=== PATIENT | female | born 1945 | race Caucasian/White ===

== ENCOUNTER 2018-05-07 15:02 | Emergency (ER) | payer MEDICARE ==
[~2018-05-07] VITALS: Ht 170.2 cm; Wt 91.0 kg
[~2018-05-07 15:02] MED LIST: ADVAIR HF1 INH; ADVAIR HFA IN; AMITRIPTYLIN25 MG OR; CEPHALEXIN500 MG PO; DOXYCYCL HYC100 MG OR; FUROSEMIDE20 MG PO; HYDROCODONE/ACE1 TAB PO; LEXAPRO20 MG OR; LORTAB 5 OR; NORCO1 TAB OR; NORCO1 TAB PO; OMEPRAZOLE20 MG PO; PERCOCET 10/31 COMBO PO; POT CHLORIDE20 ME3 PO; POTASSI20 PO; PREDNISONE20 MG OR; PRILOSEC20 MG/CAP PO; PRILOSEC40 MG PO; PROAIR HFA IN; SIMVASTATIN20 MG PO; SINGULAIR10 MG PO; TAM75CAP PO; TOPROL XL PO; TOPROL XL50 MG PO; [UNRECOGNIZED DRUG - OTHER] IV
[2018-05-07] MEDS ORDERED: SINGULAIR10 MG PO (15:42)
[2018-05-07 17:19] LABS: HEMATOCRIT 37.8 % (37.0-47.0); HEMOGLOBIN 12.5 g/dl (12.0-16.0); IMMATURE GRANULOCYTES 0.1 % (0.0-1.0); MEAN CELL VOLUME 98.4 fL CALC (80.0-100.0); MEAN CORPUSCULAR HGB 32.6 pG CALC (26.0-32.0); MEAN CORPUSCULAR HGB CONC 33.1 g/L CALC (32.0-36.0); NEUT# 3.69 thou/uL (2.00-7.15); RED BLOOD COUNT 3.84 mill/uL (4.20-5.60); RED CELL DISTRI WIDTH 11.5 % (11.5-15.5); URINE BILIRUBIN - DIPSTICK NEGATIVE (NEGATIVE); URINE BLOOD DIPSTICK NEGATIVE (NEGATIVE); URINE COLOR YELLOW; URINE GLUCOSE - DIPSTICK NEGATIVE (NEGATIVE); URINE KETONE NEGATIVE (NEGATIVE); URINE LEUK ESTERASE NEGATIVE (NEGATIVE); URINE NITRITE - DIPSTICK NEGATIVE (Negative); URINE PH 5.5 (4.5-8.0); URINE PROTEIN - DIPSTICK NEGATIVE (NEG-TRACE); URINE UROBILINOGEN - DIPSTICK 0.2 E.U./dL (0.2)
[2018-05-07 17:20] LABS: URINE CLARITY CLEAR
[2018-05-07 17:53] LABS: ALKALINE PHOSPHATASE 58 u/l (38-126); ANION GAP 9 (6-22 (CALC)); BILIRUBIN, TOTAL 0.8 mg/dL (0.0-1.4); BUN 23 mg/dL (8-23); BUN/CREATININE RATIO 29 (12-20 (CALC)); CARBON DIOXIDE 29 mmol/l (22-30); CHLORIDE 107 mmol/l (95-108); CREATININE 0.8 mg/dL (0.5-1.0); GFR > 60 ML/MIN (>=60 (CALC)); GFR FOR AFR.AMER. > 60 ML/MIN (>=60 (CALC)); LIPASE 47 u/l (23-300); POTASSIUM 4.3 mmol/l (3.5-5.1); SGOT/AST 21 u/l (9-36); SGPT/ALT 30 u/l (11-66); SODIUM 140 mmol/l (137-146); TOTAL PROTEIN 6.5 g/dL (6.3-8.2)
[2018-05-07 19:57] VITALS: BP 138/70
== END 2018-05-07 19:54 | disposition home or self-care (01) ==
LOC: ED 15:02
PROVIDERS: Family Medicine
DX: R10.31 Right lower quadrant pain (principal); R10.32 Left lower quadrant pain; E11.9 Type 2 diabetes mellitus without complications; J45.909 Unspecified asthma, uncomplicated
CPT/HCPCS: Q9967

== ENCOUNTER → 2018-12-20 | Outpatient (REF) | payer MEDICARE ==
[~2018-12-20] MED LIST changes: +CYMBALTA60 MG PO; +FISH OIL1 CAP PO; +L-LYSINE500 M2 PO; +METO50TA52 PO
== END | disposition home or self-care (01) ==
LOC: CT 13:51
PROVIDERS: ATTEND Nurse Practitioner
DX: R91.1 Solitary pulmonary nodule (principal)

== ENCOUNTER → 2019-01-05 | Outpatient (REF) | payer MEDICARE | END | disposition home or self-care (01) | LOC: DI 10:34 | PROVIDERS: ATTEND Nurse Practitioner | DX: R05 Cough (principal) ==

== ENCOUNTER → 2019-01-26 | Outpatient (REF) | payer MEDICARE ==
[2019-01-26 11:39] LABS: ANION GAP 12 (6-22 (CALC)); BUN 14 mg/dL (8-23); BUN/CREATININE RATIO 14 (12-20 (CALC)); CARBON DIOXIDE 31 mmol/l (22-30); CHLORIDE 103 mmol/l (95-108); GFR 55 ML/MIN (>=60 (CALC)); GFR FOR AFR.AMER. > 60 ML/MIN (>=60 (CALC)); POTASSIUM 3.8 mmol/l (3.5-5.1); SODIUM 143 mmol/l (137-146)
== END | disposition home or self-care (01) ==
LOC: LAB 10:16
PROVIDERS: ATTEND Internal Medicine Endocrinology, Diabetes & Metabolism
DX: E11.69 Type 2 diabetes mellitus with other specified complication (principal)

== ENCOUNTER 2019-07-26 06:28 | Day surgery (SDC) | payer MEDICARE ==
[~2019-07-26] VITALS: Ht 167.6 cm; Wt 83.9 kg
[2019-07-26] MEDS ORDERED: PROBIOTIC1 TAB PO (06:57)
[2019-07-26] MEDS ORDERED: MULTI VIT PO (06:57)
[2019-07-26] MEDS ORDERED: CALCIU1 PO (06:58)
[2019-07-26] MEDS ORDERED: L-LYSINE1000 M1 PO (06:58)
[2019-07-26 08:29] VITALS: BP 135/63
== END 2019-07-26 08:41 | disposition home or self-care (01) ==
LOC: ENDO 06:28 → ORM 08:00 → ENDO 08:00 → ORM 08:45
PROVIDERS: ATTEND Surgery
PROC: 0DBL8ZX Excision of Transverse Colon, Via Natural or Artificial Opening Endoscopic, Diagnostic (ICD-10-PCS; principal; 2019-07-26)
DX: D12.3 Benign neoplasm of transverse colon (principal); K57.30 Diverticulosis of large intestine without perforation or abscess without bleeding; K64.8 Other hemorrhoids; I10 Essential (primary) hypertension; Z86.010 Personal history of colon polyps

== ENCOUNTER 2019-09-09 13:23 | Emergency (ER) | payer MEDICARE ==
[~2019-09-09] VITALS: Ht 167.6 cm; Wt 81.0 kg
[~2019-09-09 13:23] MED LIST changes: +CALCIU1 PO; +L-LYSINE1000 M1 PO; +MULTI VIT PO; +PROBIOTIC1 TAB PO
[2019-09-09 14:16] LABS: HEMATOCRIT 39.1 % (37.0-47.0); HEMOGLOBIN 12.8 g/dl (12.0-16.0); IMMATURE GRANULOCYTES 0.3 % (0.0-5.0); MEAN CELL VOLUME 95.8 fL CALC (80.0-100.0); MEAN CORPUSCULAR HGB 31.4 pG CALC (26.0-32.0); MEAN CORPUSCULAR HGB CONC 32.7 g/L CALC (32.0-36.0); NEUT# 5.96 thou/uL (2.00-7.15); RED BLOOD COUNT 4.08 mill/uL (4.20-5.60)
[2019-09-09 14:17] LABS: URINE BILIRUBIN - DIPSTICK NEGATIVE (NEGATIVE); URINE BLOOD DIPSTICK NEGATIVE (NEGATIVE); URINE COLOR YELLOW; URINE GLUCOSE - DIPSTICK NEGATIVE (NEGATIVE); URINE KETONE NEGATIVE (NEGATIVE); URINE LEUK ESTERASE NEGATIVE (NEGATIVE); URINE PROTEIN - DIPSTICK NEGATIVE (NEG-TRACE); URINE SPECIFIC GRAVITY >=1.030; URINE UROBILINOGEN - DIPSTICK 0.2 E.U./dL (0.2)
[2019-09-09 14:26] LABS: URINE NITRITE - DIPSTICK POSITIVE (Negative)
[2019-09-09 14:27] LABS: ALBUMIN 4.3 g/dL (3.2-5.0); BILIRUBIN, TOTAL 0.9 mg/dL (0.0-1.4); CREATININE 1.1 mg/dL (0.5-1.0); POTASSIUM 4.1 mmol/l (3.5-5.1)
[2019-09-09 14:27] LABS: URINE BACTERIA MANY hpf; URINE CALCIUM OXALATE CRYSTALS FEW lpf; URINE SQUAMOUS EPITHELIAL CELL FEW EPI/hpf (0-FEW)
[2019-09-09] MEDS ORDERED: MACRODANTIN100 MG PO (15:12)
[2019-09-09 15:18] VITALS: BP 124/81
== END 2019-09-09 15:28 | disposition home or self-care (01) ==
LOC: ED 13:23
PROVIDERS: Emergency Medicine
DX: N39.0 Urinary tract infection, site not specified (principal); R39.198 Other difficulties with micturition; I10 Essential (primary) hypertension; B96.20 Unspecified Escherichia coli [E. coli] as the cause of diseases classified elsewhere

== ENCOUNTER 2020-01-23 | Emergency (ER) | payer OTHER, MEDICARE ==
[~2020-01-23] MED LIST changes: +CARAFATE1 GM PO; +MACRODANTIN100 MG PO; +MONTELUKAST SOD10 MG PO
[2020-01-23 19:26] LABS: HEMATOCRIT 37.9 % (37.0-47.0); HEMOGLOBIN 12.6 g/dl (12.0-16.0); IMMATURE GRANULOCYTES 0.4 % (0.0-5.0); MEAN CELL VOLUME 94.3 fL CALC (80.0-100.0); MEAN CORPUSCULAR HGB 31.3 pG CALC (26.0-32.0); MEAN CORPUSCULAR HGB CONC 33.2 g/dL CAL (32.0-36.0); NEUT# 4.33 thou/uL (2.00-7.15); RED BLOOD COUNT 4.02 mill/uL (4.20-5.60); RED CELL DISTRI WIDTH 11.9 % (11.5-15.5)
[2020-01-23 19:34] LABS: URINE BILIRUBIN - DIPSTICK NEGATIVE (NEGATIVE); URINE BLOOD DIPSTICK NEGATIVE (NEGATIVE); URINE COLOR YELLOW; URINE GLUCOSE - DIPSTICK NEGATIVE (NEGATIVE); URINE KETONE NEGATIVE (NEGATIVE); URINE LEUK ESTERASE NEGATIVE (NEGATIVE); URINE NITRITE - DIPSTICK NEGATIVE (Negative); URINE PROTEIN - DIPSTICK NEGATIVE (NEG-TRACE); URINE SPECIFIC GRAVITY >=1.030; URINE UROBILINOGEN - DIPSTICK 0.2 E.U./dL (0.2)
[2020-01-23 19:44] LABS: ALBUMIN 4.3 g/dL (3.2-5.0); ALKALINE PHOSPHATASE 74 u/l (38-126); AMYLASE 50 u/l (30-110); ANION GAP 10 (6-22 (CALC)); BILIRUBIN, TOTAL 0.8 mg/dL (0.0-1.4); BUN 27 mg/dL (8-23); BUN/CREATININE RATIO 29 (12-20 (CALC)); CARBON DIOXIDE 31 mmol/l (22-30); CHLORIDE 102 mmol/l (95-108); CREATININE 0.9 mg/dL (0.5-1.0); GFR > 60 ML/MIN (>=60 (CALC)); GFR FOR AFR.AMER. > 60 ML/MIN (>=60 (CALC)); LIPASE 52 u/l (23-300); SGOT/AST 24 u/l (9-36); SODIUM 139 mmol/l (137-146); TOTAL PROTEIN 6.9 g/dL (6.3-8.2)
[2020-01-23 19:45] LABS: ACT PARTIAL THROMBO TIME 27.4 SECONDS (20.0-32.5); PROTHROMBIN TIME 10.4 SECONDS (9.0-12.5)
[2020-01-23] MEDS ORDERED: MULTI VIT PO (20:17)
[2020-01-23] MEDS ORDERED: DITROPAN5 MG/TA1 PO (20:17)
[2020-01-23] MEDS ORDERED: L-LYSINE1000 M1 PO (20:18)
[2020-01-23] MEDS ORDERED: OMEGA 31000 MG PO (20:19)
[2020-01-23] MEDS ORDERED: CALCIU1 PO (20:19)
[2020-01-23] MEDS ORDERED: PROBIOTIC1 TAB PO (20:20)
[2020-01-23] MEDS ORDERED: HYDROCO/APAP1 TA9 PO (21:09)
[2020-03-25] MEDS ORDERED: METOPROLOL SUCC50 MG PO (11:21)
== END 2020-01-23 21:24 | disposition home or self-care (01) | DRG 552 ==
DX: S16.1XXA Strain of muscle, fascia and tendon at neck level, initial encounter (principal); S20.219A Contusion of unspecified front wall of thorax, initial encounter; S80.02XA Contusion of left knee, initial encounter; I10 Essential (primary) hypertension; J44.9 Chronic obstructive pulmonary disease, unspecified; I34.1 Nonrheumatic mitral (valve) prolapse; V49.40XA Driver injured in collision with unspecified motor vehicles in traffic accident, initial encounter
CPT/HCPCS: Q9967

== ENCOUNTER 2020-04-01 07:42 | Day surgery (SDC) | payer MEDICARE ==
[~2020-04-01 07:42] MED LIST changes: +DITROPAN5 MG/TA1 PO; +HYDROCO/APAP1 TA9 PO; +METOPROLOL SUCC50 MG PO; +OMEGA 31000 MG PO
[2020-04-01 10:47] VITALS: BP 162/67
== END 2020-04-01 11:00 | disposition home or self-care (01) ==
LOC: ENDO 07:42 → ORM 08:00 → ENDO 11:00
PROVIDERS: ATTEND Surgery
PROC: 0DB48ZX Excision of Esophagogastric Junction, Via Natural or Artificial Opening Endoscopic, Diagnostic (ICD-10-PCS; principal; 2020-04-01)
PROC: 0DB78ZX Excision of Stomach, Pylorus, Via Natural or Artificial Opening Endoscopic, Diagnostic (ICD-10-PCS; 2020-04-01)
PROC: 0DB68ZX Excision of Stomach, Via Natural or Artificial Opening Endoscopic, Diagnostic (ICD-10-PCS; 2020-04-01)
DX: T54.91XA Toxic effect of unspecified corrosive substance, accidental (unintentional), initial encounter (principal); R13.10 Dysphagia, unspecified; K29.50 Unspecified chronic gastritis without bleeding; K29.70 Gastritis, unspecified, without bleeding; K31.7 Polyp of stomach and duodenum; K44.9 Diaphragmatic hernia without obstruction or gangrene; I10 Essential (primary) hypertension; Z11.59 Encounter for screening for other viral diseases

== ENCOUNTER 2020-10-22 10:46 | Emergency (ER) | payer MEDICARE ==
[~2020-10-22] VITALS: Ht 167.6 cm; Wt 84.0 kg
[2020-10-22 12:15] VITALS: BP 141/72
== END 2020-10-22 12:15 | disposition home or self-care (01) ==
LOC: ED 10:46
DX: S83.91XA Sprain of unspecified site of right knee, initial encounter (principal); S80.211A Abrasion, right knee, initial encounter; S46.911A Strain of unspecified muscle, fascia and tendon at shoulder and upper arm level, right arm, initial encounter; I10 Essential (primary) hypertension; J44.9 Chronic obstructive pulmonary disease, unspecified; I34.1 Nonrheumatic mitral (valve) prolapse; W01.0XXA Fall on same level from slipping, tripping and stumbling without subsequent striking against object, initial encounter; Y92.009 Unspecified place in unspecified non-institutional (private) residence as the place of occurrence of the external cause

== ENCOUNTER 2021-10-12 11:41 | Emergency (ER) | payer MEDICARE ==
[~2021-10-12] VITALS: Ht 167.6 cm; Wt 84.1 kg
[2021-10-12] MEDS ORDERED: OXYBUTYNIN CHLOR5 M1 PO (13:21)
[2021-10-12 13:49] VITALS: BP 144/67
== END 2021-10-12 13:49 | disposition home or self-care (01) ==
LOC: ED 11:41
DX: M16.11 Unilateral primary osteoarthritis, right hip (principal); M47.816 Spondylosis without myelopathy or radiculopathy, lumbar region; I10 Essential (primary) hypertension; J44.9 Chronic obstructive pulmonary disease, unspecified; I34.1 Nonrheumatic mitral (valve) prolapse

== ENCOUNTER 2022-01-01 18:43 | Emergency (ER) | payer MEDICARE ==
[~2022-01-01] VITALS: Ht 167.6 cm; Wt 82.0 kg
[~2022-01-01 18:43] MED LIST changes: +OXYBUTYNIN CHLOR5 M1 PO
[2022-01-01 20:05] LABS: HEMATOCRIT 41.8 % (37.0-47.0); HEMOGLOBIN 13.7 g/dl (12.0-16.0); IMMATURE GRANULOCYTES 0.3 % (0.0-5.0); MEAN CELL VOLUME 97.4 fL CALC (80.0-100.0); MEAN CORPUSCULAR HGB 31.9 pG CALC (26.0-32.0); MEAN CORPUSCULAR HGB CONC 32.8 g/dL CAL (32.0-36.0); NEUT# 5.66 thou/uL (2.00-7.15); RED BLOOD COUNT 4.29 mill/uL (4.20-5.60); RED CELL DISTRI WIDTH 11.8 % (11.5-15.5)
[2022-01-01 20:22] LABS: ALBUMIN 4.4 g/dL (3.2-5.0); ALKALINE PHOSPHATASE 85 u/l (38-126); BILIRUBIN, TOTAL 0.6 mg/dL (0.0-1.4); BUN 29 mg/dL (8-23); BUN/CREATININE RATIO 35 (12-20 (CALC)); CHLORIDE 104 mmol/l (95-108); CREATININE 0.8 mg/dL (0.5-1.0); GFR > 60 ML/MIN (>=60 (CALC)); GFR FOR AFR.AMER. > 60 ML/MIN (>=60 (CALC)); MAGNESIUM 2.4 mg/dL (1.6-2.3); POTASSIUM 4.3 mmol/l (3.5-5.1); SGOT/AST 35 u/l (9-36); SODIUM 139 mmol/l (137-146); TOTAL PROTEIN 7.3 g/dL (6.3-8.2)
[2022-01-01 20:23] LABS: ANION GAP 13 (6-22 (CALC)); CARBON DIOXIDE 26 mmol/l (22-30)
[2022-01-01 20:28] LABS: MYOGLOBIN 23 ng/mL (0 - 62)
[2022-01-01 20:32] LABS: D-DIMER 0.45 mg/L (0.19-0.60)
[2022-01-01 20:35] LABS: ACT PARTIAL THROMBO TIME 26.9 SECONDS (20.0-32.5)
[2022-01-01 20:50] LABS: TSH, 3RD GENERATION 0.43 uIU/mL (0.47 - 4.68)
[2022-01-01 20:55] LABS: URINE BILIRUBIN - DIPSTICK NEGATIVE (NEGATIVE); URINE BLOOD DIPSTICK SMALL (NEGATIVE); URINE COLOR YELLOW; URINE GLUCOSE - DIPSTICK 500 mg/dL (NEGATIVE); URINE KETONE NEGATIVE (NEGATIVE); URINE LEUK ESTERASE NEGATIVE (NEGATIVE); URINE PROTEIN - DIPSTICK NEGATIVE (NEG-TRACE); URINE UROBILINOGEN - DIPSTICK 0.2 E.U./dL (0.2)
[2022-01-01 20:56] LABS: URINE NITRITE - DIPSTICK NEGATIVE (Negative)
[2022-01-01] MEDS ORDERED: METFORMIN HCL1000 M1 PO (21:21)
[2022-01-01 22:10] VITALS: BP 170/72
== END 2022-01-01 22:10 | disposition home or self-care (01) ==
LOC: ED 18:43
PROVIDERS: Family Medicine
DX: E11.65 Type 2 diabetes mellitus with hyperglycemia (principal); R06.02 Shortness of breath; I10 Essential (primary) hypertension; J44.9 Chronic obstructive pulmonary disease, unspecified; I34.1 Nonrheumatic mitral (valve) prolapse

== ENCOUNTER 2022-04-29 11:30 | Emergency (ER) | payer MEDICARE ==
[~2022-04-29] VITALS: Ht 167.6 cm; Wt 90.0 kg
[2022-04-29] VITALS (11 sets, daily range): BP systolic 102–116; BP diastolic 50–76
[~2022-04-29 11:30] MED LIST changes: +METFORMIN HCL1000 M1 PO
[2022-04-29] MEDS ORDERED: NAPROXEN500 MG PO (13:56)
== END 2022-04-29 14:27 | disposition home or self-care (01) ==
LOC: ED 11:30
DX: S83.92XA Sprain of unspecified site of left knee, initial encounter (principal); S16.1XXA Strain of muscle, fascia and tendon at neck level, initial encounter; S90.32XA Contusion of left foot, initial encounter; S80.811A Abrasion, right lower leg, initial encounter; M17.12 Unilateral primary osteoarthritis, left knee; I10 Essential (primary) hypertension; J44.9 Chronic obstructive pulmonary disease, unspecified; W17.89XA Other fall from one level to another, initial encounter; Y93.A1 Activity, exercise machines primarily for cardiorespiratory conditioning; Y92.009 Unspecified place in unspecified non-institutional (private) residence as the place of occurrence of the external cause

== ENCOUNTER 2022-10-04 09:26 | Day surgery (SDC) | payer MEDICARE ==
[~2022-10-04] VITALS: Ht 167.6 cm; Wt 66.7 kg
[~2022-10-04 09:26] MED LIST changes: +NAPROXEN500 MG PO
[2022-10-04] MEDS ORDERED: VENTOLIN HFA IN (10:18)
[2022-10-04 14:56] VITALS: BP 135/71
== END 2022-10-04 13:40 | disposition home or self-care (01) ==
LOC: ENDO 09:26
PROVIDERS: ATTEND Internal Medicine Gastroenterology
PROC: 0DBK8ZX Excision of Ascending Colon, Via Natural or Artificial Opening Endoscopic, Diagnostic (ICD-10-PCS; principal; 2022-10-04)
PROC: 0DBN8ZX Excision of Sigmoid Colon, Via Natural or Artificial Opening Endoscopic, Diagnostic (ICD-10-PCS; 2022-10-04)
PROC: 0DBH8ZX Excision of Cecum, Via Natural or Artificial Opening Endoscopic, Diagnostic (ICD-10-PCS; 2022-10-04)
DX: Z12.11 Encounter for screening for malignant neoplasm of colon (principal); D12.0 Benign neoplasm of cecum; K63.5 Polyp of colon; K64.8 Other hemorrhoids; I10 Essential (primary) hypertension; E11.9 Type 2 diabetes mellitus without complications; J44.9 Chronic obstructive pulmonary disease, unspecified; E78.5 Hyperlipidemia, unspecified; K21.9 Gastro-esophageal reflux disease without esophagitis; Z80.0 Family history of malignant neoplasm of digestive organs

== ENCOUNTER 2022-11-25 20:19 | Emergency (ER) | payer MEDICARE ==
[~2022-11-25] VITALS: Ht 167.6 cm; Wt 75.0 kg
[~2022-11-25 20:19] MED LIST changes: +VENTOLIN HFA IN
[2022-11-26] VITALS (11 sets, daily range): BP systolic 106–137; BP diastolic 46–102
== END 2022-11-26 03:12 | disposition home or self-care (01) ==
LOC: ED 20:19
DX: S46.911A Strain of unspecified muscle, fascia and tendon at shoulder and upper arm level, right arm, initial encounter (principal); M25.551 Pain in right hip; I10 Essential (primary) hypertension; J44.9 Chronic obstructive pulmonary disease, unspecified; I05.8 Other rheumatic mitral valve diseases; W01.0XXA Fall on same level from slipping, tripping and stumbling without subsequent striking against object, initial encounter

== ENCOUNTER 2024-07-25 17:53 | Observation (INO) | payer MEDICARE ==
[2024-07-25] VITALS (8 sets, daily range): BP systolic 115–182; BP diastolic 46–102
[~2024-07-25] VITALS: Ht 167.6 cm; Wt 80.0 kg
[~2024-07-25 17:53] MED LIST changes: -HYDROCODONE/ACE1 TAB PO; +LORTAB 1010 MG PO
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
[2024-07-25 18:27] LABS: BASO% 0.6 % (0-3); EOS% 2.1 % (0-8); HEMATOCRIT 41.5 % (37.0-47.0); HEMOGLOBIN 13.3 g/dl (12.0-16.0); IMMATURE GRANULOCYTES 0.1 % (0.0-5.0); LYMPH% 28.6 % (15-41); MEAN CELL VOLUME 97.4 fL CALC (80.0-100.0); MEAN CORPUSCULAR HGB 31.2 pG CALC (26.0-32.0); MONO% 9.7 % (2-13); NEUT# 4.02 thou/uL (2.00-7.15); NEUT% 58.9 % (42-76); RED BLOOD COUNT 4.26 mill/uL (4.20-5.60); RED CELL DISTRI WIDTH 11.8 % (11.5-15.5)
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
[2024-07-25 18:41] LABS: ALBUMIN 4.6 g/dL (3.2-5.0); BILIRUBIN, TOTAL 1.1 mg/dL (0.02-1.3); CREATININE 0.9 mg/dL (0.5-1.0); POTASSIUM 4.7 mmol/l (3.5-5.1); TOTAL PROTEIN 7.5 g/dL (6.3-8.2)
--- NOTE | 2024-07-25 18:50 | NUR ---
REPORT RECEIVED FROM Lupis PHILLIPS RN
--- NOTE | 2024-07-25 19:27 | NUR ---
NICHOLAS AT BEDSIDE. DENIES HAVING MED REC FOR PATIENT. PATIENT DOES NOT KNOW MEDICATIONS OR MEDICATION LIST.
--- NOTE | 2024-07-25 19:38 | NUR ---
PATIENT RETURNED FROM CT SCAN AT THIS TIME.
--- NOTE | 2024-07-25 20:23 | NUR ---
TELENEUROLOGY ON WITH PATIENT.
[2024-07-25] MEDS ORDERED: QUEtiapine FUMERATE 25 MG/TAB PO SCH (21:10)
[2024-07-25] MEDS ORDERED: ACETAMINOPHEN 325 MG/TAB PO PRN (21:10)
[2024-07-25] MEDS ORDERED: MAGNESIUM HYDROXIDE 30 ML UDC PO PRN (21:10)
[2024-07-25] MEDS ORDERED: ALBUTEROL SULFATE 8 GM INH IN PRN (21:15)
[2024-07-25] MEDS ORDERED: HALOPERIDOL LACTATE 5 MG/ML SDV IV PRN (21:15)
[2024-07-25] MEDS ORDERED: HYDROcodone/Acetaminophen 1 COMBO TAB PO PRN (21:15)
[2024-07-25] MEDS ORDERED: DiphenhydrAMINE HCL 50 MG/ML SDV IV PRN (21:15)
[2024-07-25] MEDS ORDERED: ALENDRONATE SOD70 MG PO (21:21)
[2024-07-25] MEDS ORDERED: COZAAR25 MG PO (21:22)
--- NOTE | 2024-07-25 21:33 | NUR ---
PATIENT ASSITED TO BATHROOM.
--- NOTE | 2024-07-25 21:41 | NUR ---
REPORT GIVEN TO Linda ZHENG RN.
[2024-07-25 21:46] LABS: URINE BILIRUBIN - DIPSTICK Negative (NEGATIVE); URINE BLOOD DIPSTICK Small (NEGATIVE); URINE GLUCOSE - DIPSTICK Negative (NEGATIVE); URINE KETONE Negative (NEGATIVE); URINE LEUK ESTERASE Negative (NEGATIVE); URINE PH 5.5 (4.5-8.0); URINE PROTEIN - DIPSTICK Negative (NEG-TRACE); URINE SPECIFIC GRAVITY 1.025; URINE UROBILINOGEN - DIPSTICK 0.2 E.U./dL (0.2)
[2024-07-25 21:47] LABS: URINE COLOR Yellow; URINE NITRITE - DIPSTICK Positive (Negative)
[2024-07-25 21:52] LABS: URINE BACTERIA MODERATE hpf; URINE RBC 0-2 RBC/hpf (0-5); URINE WBC 0-2 WBC/hpf (0-5)
[2024-07-25 21:53] LABS: URINE SQUAMOUS EPITHELIAL CELL FEW EPI/hpf (0-FEW)
--- NOTE | 2024-07-25 22:35 | NUR ---
PATIENT TRANSPORTED TO MED SURG ROOM 270. CARE HANDED OVER TO A MARCE CORTEZ.
--- NOTE | 2024-07-25 22:40 | NUR ---
PT ARRIVED TO MS BED 270 VIA W/C @ APPROX. 2229. PT IS ALERT TO PLACE AND SELF ONLY. PT IS VERY CONFUSED. SPEECH IS CLEAR. LUNG SOUNDS CLEAR. PT AMBULATORY. BED ALARM IS ACTIVATED DUE TO CONFUSION AND FLIGHT RISK. PT COMPLAINED OF PAIN IN BACK AND ABD REGION. BLOOD PRESSURE ELEVATED 182/49. WILL REACCESS. FALL RISK BAND AND SOCKS ON PT. PT IS UPSET, CRYING FOR . WEREABOUTS UNKWOWN. CALL LIGHT IN REACH
--- NOTE | 2024-07-25 22:49 | NUR ---
VItals Oxygen:99 Pulse:63 BP:182/79 Temp:97.3 Weight- Digital standing scale 80.0kg
--- NOTE | 2024-07-26 00:10 | NUR ---
12:00AM VITALS OXYGEN:96 PULSE:56 BP:115/46 RESP:18 TEMP:97.6
[2024-07-26 03:15] VITALS: BP 116/54
[2024-07-26 03:56] VITALS: BP 116/54
--- NOTE | 2024-07-26 04:20 | NUR ---
PT RESTING COMFORTABLY. PT ALERT TO SELF AND PLACE. ANXIETY HAS LESSENED SINCE INITIAL ADMISSION ASESSMENT. OFFERED FLUIDS, BATHROOM ASSISTANCE. PT REMAINS CONFUSED. CALL LIGHT IN REACH
[2024-07-26 05:11] LABS: BASO% 0.6 % (0-3); EOS% 2.7 % (0-8); HEMATOCRIT 37.5 % (37.0-47.0); HEMOGLOBIN 12.4 g/dl (12.0-16.0); LYMPH% 42.5 % (15-41); MEAN CELL VOLUME 95.7 fL CALC (80.0-100.0); MEAN CORPUSCULAR HGB 31.6 pG CALC (26.0-32.0); MEAN CORPUSCULAR HGB CONC 33.1 g/dL CAL (32.0-36.0); MONO% 10.8 % (2-13); NEUT# 2.77 thou/uL (2.00-7.15); NEUT% 43.4 % (42-76); RED BLOOD COUNT 3.92 mill/uL (4.20-5.60); RED CELL DISTRI WIDTH 11.7 % (11.5-15.5)
[2024-07-26 05:29] LABS: ALBUMIN 3.7 g/dL (3.2-5.0); BILIRUBIN, TOTAL 1.2 mg/dL (0.02-1.3); CREATININE 0.9 mg/dL (0.5-1.0); MAGNESIUM 2.2 mg/dL (1.6-2.3); TOTAL PROTEIN 6.3 g/dL (6.3-8.2)
[2024-07-26 06:08] VITALS: BP 134/57
[2024-07-26] MEDS ORDERED: PANTOPRAZOLE SODIUM Sesquihydr 40 MG/TAB PO SCH (09:00)
[2024-07-26] MEDS ORDERED: MONTELUKAST SODIUM 10 MG/TAB PO SCH (09:00)
[2024-07-26] MEDS ORDERED: LOSARTAN Potassium 25 MG/TAB PO SCH (09:00)
[2024-07-26] MEDS ORDERED: DULOXETINE HCl 30 MG/CAP PO SCH (09:00)
[2024-07-26 11:45] VITALS: BP 168/72
--- NOTE | 2024-07-26 12:00 | NUR ---
REPORT RECEIVED FROM HARISH CALIXTO SITING UP IN RECLINER, NO C/O DISCOMFORT, TELE MONITOR IN PLACE, CALL JACOBSEN IN REACH.
[2024-07-26 15:22] VITALS: BP 141/68
--- NOTE | 2024-07-26 16:00 | NUR ---
RESTING IN BED WATCHING TV, FAMILY IN ROOM BUT THERI PRESENCE TOTALLY NEGLECTED BY PATIENT WHO IS RESTING IN BED WATCHING TV.
--- NOTE | 2024-07-26 19:32 | NUR ---
BEDSIDE REPORT RECEIVED FROM OFF GOING NURSE. PATIENT AWAKE IN BED AT THIS ITME. PATIENT HAS SITTER AT BEDSIDE DUE TO AMS AND ELOPEMENT RISK. PATIENT MOOD PLEASANT. C/O GENERALIZED PAIN. SAFETY MEASURES IN PLACE. NEEDS ANTICIPATED.
[2024-07-26 20:45] VITALS: BP 173/80
[2024-07-26] MEDS ORDERED: ENOXAPARIN SODIUM 40 MG/0.4 ML SYR SC SCH (21:00)
[2024-07-27] VITALS (11 sets, daily range): BP systolic 103–165; BP diastolic 46–87
--- NOTE | 2024-07-27 03:31 | NUR ---
PATIENT ASLEEP IN BED AT THIS TIME. RESPIRATIONS EVEN AND UNLABORED ON ROOM AIR. NO SIGNS OF DISTRESS NOTED. SAFETY MEASURES IN PLACE. CONTINUES TO HAVE 1:1 STAFF AT BEDSIDE.
[2024-07-27 05:24] LABS: BASO% 0.6 % (0-3); EOS% 3.1 % (0-8); HEMATOCRIT 39.1 % (37.0-47.0); HEMOGLOBIN 12.7 g/dl (12.0-16.0); IMMATURE GRANULOCYTES 0.1 % (0.0-5.0); LYMPH% 41.1 % (15-41); MEAN CELL VOLUME 95.8 fL CALC (80.0-100.0); MEAN CORPUSCULAR HGB 31.1 pG CALC (26.0-32.0); MEAN CORPUSCULAR HGB CONC 32.5 g/dL CAL (32.0-36.0); MONO% 10.6 % (2-13); NEUT# 3.06 thou/uL (2.00-7.15); NEUT% 44.5 % (42-76); RED BLOOD COUNT 4.08 mill/uL (4.20-5.60); RED CELL DISTRI WIDTH 11.6 % (11.5-15.5)
[2024-07-27 05:37] LABS: ALBUMIN 3.9 g/dL (3.2-5.0); BILIRUBIN, TOTAL 1.4 mg/dL (0.02-1.3); CREATININE 0.8 mg/dL (0.5-1.0); MAGNESIUM 2.3 mg/dL (1.6-2.3); POTASSIUM 3.7 mmol/l (3.5-5.1); TOTAL PROTEIN 6.6 g/dL (6.3-8.2)
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
--- NOTE | 2024-07-27 08:28 | NUR ---
NEW IV STARTED IN RIGHT HAND WITHOUT DIFFICULTY. PT SITTING IN CHAIR. PT'S SPOUSE CAME TO VISIT. PT IS UPSET WITH SOOUSE, AND CONFUSED ABOUT HIM. PT NOW AT BEDSIDE TO ATTEMPT TO WORK WITH PT.
--- NOTE | 2024-07-27 12:00 | NUR ---
PATIENT SITTING UP IN BED. SITTER AT BEDSIDE. ALL NEEDS MET. CALL LIGHT IN REACH.
--- NOTE | 2024-07-27 16:00 | NUR ---
PATIENT LAYING DOWN IN BED. SITTER AT BEDSIDE. FAMILY AT BEDSIDE. ALL NEEDS MET. CALL LIGHT IN REACH. VSS.
--- NOTE | 2024-07-27 20:00 | NUR ---
PATIENT RESTING IN BED AT THIS TIME WITH SITTER AT BEDSIDE FOR PATIENT SAFETY. AWAKE ALERT AND ORIENTEDX2. PATIENT WITH SOME CONCERNS REGUARDING HER . C/O GENERALIZED PAIN AND ASKING FOR PAIN MEDS-TOO EARLY AT THIS TIME. PATIENT WITH TELE MONITOR IN PLACE-SR-80'S. SALINE LOCK INTACT TO RIGHT HAND. UP TO THE BR WITH MIN ASSIST TO VOID YELLOW URINE. LUNGS ARE CLEAR. ABD IS SOFT WITH ACTIVE BS. LAST BM WAS TODAY 07/27. SAFETY PRECAUTIONS REINFORCED.CALL LIGHT IN REACH. WILL CONT TO MONITOR.
[2024-07-27] MEDS ORDERED: QUEtiapine FUMERATE 25 MG/TAB PO SCH (21:00)
[2024-07-28] VITALS (8 sets, daily range): BP systolic 103–153; BP diastolic 46–81
--- NOTE | 2024-07-28 | NUR ---
PATIENT RESTING IN BED WITH EYES CLOSED. RESPS ARE EVEN AND UNLABORED. SITTER REMAINS AT BEDSIDE. CALL LIGHT IN REACH. WILL CONT TO MONITOR.
--- NOTE | 2024-07-28 04:00 | NUR ---
RESTING IN BED AT THIS TIME WITH EYES CLOSED AND RESPS ARE EVEN AND UNLABORED. SITTER AT BEDSIDE FOR PATIENT SAFETY. TELE MONITOR IN PLACE AND READING SR 80'S. SALINE LOCK TO RIGHT HAND INTACT. CALL LIGHT IN REACH. WILL CONT TO MONITOR.
[2024-07-28 05:25] LABS: BASO% 0.4 % (0-3); EOS% 2.4 % (0-8); HEMOGLOBIN 12.9 g/dl (12.0-16.0); IMMATURE GRANULOCYTES 0.1 % (0.0-5.0); LYMPH% 38.3 % (15-41); MEAN CELL VOLUME 95.6 fL CALC (80.0-100.0); MEAN CORPUSCULAR HGB 31.6 pG CALC (26.0-32.0); MEAN CORPUSCULAR HGB CONC 33.1 g/dL CAL (32.0-36.0); MONO% 10.6 % (2-13); NEUT# 4.33 thou/uL (2.00-7.15); NEUT% 48.2 % (42-76); RED BLOOD COUNT 4.08 mill/uL (4.20-5.60); RED CELL DISTRI WIDTH 11.8 % (11.5-15.5)
[2024-07-28 05:45] LABS: BILIRUBIN, TOTAL 1.5 mg/dL (0.02-1.3); MAGNESIUM 2.2 mg/dL (1.6-2.3); POTASSIUM 3.6 mmol/l (3.5-5.1); TOTAL PROTEIN 6.8 g/dL (6.3-8.2)
--- NOTE | 2024-07-28 07:15 | NUR ---
REPORT RECEIVED FROM DANA GARNER
--- NOTE | 2024-07-28 09:32 | NUR ---
NEURO CONSULT COMPLETED AT THIS TIME.
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
--- NOTE | 2024-07-28 10:21 | NUR ---
AT BEDSIDE DISCUSSING POC WITH PT.
--- NOTE | 2024-07-28 11:25 | NUR ---
PT RESTING IN RECLINER WITH FAMILY AT BEDSIDE;RESPIRATIONS REMAIN EVEN AND UNLABORED ON RA;PT REPORTS GENERALIZED PAIN RATING 8/10 ON THE PAIN SCALE. PT MEDICATED WITH PRN LORTAB 10 PO;IV SITE TO LH REMAINS PATENT;TELE MONITORING IN PLACE;PT DENIES ANY ADDITIONAL NEEDS AND IS ENCOURAGED TO CALL FOR ASSISTANCE IF NEEDED;SITTER REMAINS AT BEDSIDE.
--- NOTE | 2024-07-28 16:15 | NUR ---
PT RESTING IN BED WITH FAMILY AT BEDSIDE.RESPIRATIONS EVEN AND UNLABORED ON RA;PT DENIES ANY CURRENT NEEDS;IV SITE TO PATENT;TELE MONITORING IN PLACE;SITTER REMAINS AT BEDSIDE;CALL LIGHT IN REACH.
--- NOTE | 2024-07-28 18:13 | NUR ---
PT REPORTS GENERALIZED PAIN RATING 8/10 ON THE PAIN SCALE, MEDICATED PER EMAR ORDERS.
--- NOTE | 2024-07-28 19:35 | NUR ---
PATIENT OBSERVED RESTING IN BED. ALERT AND ABLE TO MAKE NEEDS KNOWN. DOES HAVE PERIODS OF CONFUSION. ASSESSMENT COMPLETE. NO DISTRESS NOTED. NO COMPLAINTS OF PAIN. DENIES NEEDING ANYTHING AT THIS TIME. SITTER AT BEDSIDE FOR SAFETY. BED IN LOW POSITION. CALL JACOBSEN IN REACH.
[2024-07-28] MEDS ORDERED: DONEPEZIL HCL 5 MG/TAB PO SCH (21:00)
--- NOTE | 2024-07-29 | NUR ---
PATIENT REMAINS RESTING IN BED ON HER RIGHT SIDE. NO DISTRESS NOTED. NO COMPLAINTS VOICED. SITTER REMAINS AT BEDSIDE FOR SAFETY. BED REMAINS IN LOW POSITION. CALL JACOBSEN IN REACH.
--- NOTE | 2024-07-29 03:30 | NUR ---
PATIENT REMAINS RESTING IN BED. AMBULATES TO RESTROOM WITH STEADY GAIT NEEDED. SITTER REMAINS IN THE ROOM FOR SAFETY REASONS. PATIENT DENIES NEEDING ANYTHING AT THIS TIME. BED IN LOW POSITION. CALL JACOBSEN IN REACH.
[2024-07-29 03:54] VITALS: BP 143/71
--- NOTE | 2024-07-29 07:15 | NUR ---
SHIFT CHANGE REPORT, PT SLEEPING SOUNDLY IN RIGHT-SIDED POSITION, BREATHING EVEN AND NON-LABORED, TELE MONITOR IN PLACE, CALL JACOBSEN IN REACH AND BED LOCKED IN LOWEST POSITION. SITTER IN ROOM.
[2024-07-29 07:29] VITALS: BP 145/76
[2024-07-29 11:42] VITALS: BP 114/61
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
[2024-07-29 15:33] VITALS: BP 160/82
--- NOTE | 2024-07-29 16:03 | NUR ---
RESTING IN BED AT THIS TIME, NO NEW COMPLAINS. MAURICIO REESE EARLIER WITH POSITIVE RESULTS.
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
[2024-07-29 19:31] VITALS: BP 125/60
[2024-07-29 19:32] VITALS: BP 125/60
--- NOTE | 2024-07-29 20:05 | NUR ---
RECEIVED REPORT FROM DAYSHIFT NURSE. PT NOTED SITTING UP ON SIDE OF BED, ON RM AIR. SITTER AT BEDSIDE. PT IS A/OX2 TO SELF AND PLACE. PT C/O HEADACHE, PAIN 3 OUT OF 10. PT OFFERED MEDICATION PER EMAR FOR HEADACHE. NURSING ASSESSMENT COMPLETED AND IV SITE APPEARS HEALTHY AND INTACT. VSS. NO S/S OF DISTRESS. EDUCATED ON PLAN OF CARE AND MED SCHEDULE FOR TONIGHT. CALL LIGHT WITHIN REACH AND SAFETY PRECAUTIONS IN PLACE.
[2024-07-30] VITALS (7 sets, daily range): BP systolic 113–153; BP diastolic 44–93
--- NOTE | 2024-07-30 | NUR ---
PT LAYING IN BED ON RT SIDE, SLEEPING AT THIS TIME. SITTER AT BEDSIDE. NO S/S OF DISTRESS. CALL LIGHT WITHIN REACH AND SAFETY PRECAUTIONS IN PLACE.
--- NOTE | 2024-07-30 04:00 | NUR ---
PT NOTED LAYING SUPINE IN BED RESTING COMFORTABLE WITH EYES CLOSED. SITTER AT BEDSIDE. VSS. NO S/S OF DISTRESS. CALL LIGHT WITHIN REACH AND SAFETY PRECAUTIONS IN PLACE.
[2024-07-30 04:47] LABS: BASO% 0.5 % (0-3); EOS% 4.2 % (0-8); HEMATOCRIT 40.6 % (37.0-47.0); HEMOGLOBIN 13.2 g/dl (12.0-16.0); IMMATURE GRANULOCYTES 0.3 % (0.0-5.0); LYMPH% 42.5 % (15-41); MEAN CELL VOLUME 95.1 fL CALC (80.0-100.0); MEAN CORPUSCULAR HGB 30.9 pG CALC (26.0-32.0); MEAN CORPUSCULAR HGB CONC 32.5 g/dL CAL (32.0-36.0); MONO% 11.7 % (2-13); NEUT# 3.03 thou/uL (2.00-7.15); NEUT% 40.8 % (42-76); RED BLOOD COUNT 4.27 mill/uL (4.20-5.60); RED CELL DISTRI WIDTH 11.7 % (11.5-15.5)
[2024-07-30 05:02] LABS: ALBUMIN 3.9 g/dL (3.2-5.0); BILIRUBIN, TOTAL 1.3 mg/dL (0.02-1.3); CREATININE 0.9 mg/dL (0.5-1.0); MAGNESIUM 2.4 mg/dL (1.6-2.3); POTASSIUM 3.6 mmol/l (3.5-5.1); TOTAL PROTEIN 6.6 g/dL (6.3-8.2)
--- NOTE | 2024-07-30 07:30 | NUR ---
Report received from manager shift nurse. Patient is sleeping, does not appear to be in any distress. Sitter at bedside. Patient is on room air, NSR on tele monitor, VS WNL. All needs addressed, call light within reach.
--- NOTE | 2024-07-30 12:00 | NUR ---
Patient is resting in bed, denies any pain. A&O to self and place, on room air, NSR on tele monitor, VS WNL, sitter at bedside. All needs addressed, call light within reach.
--- NOTE | 2024-07-30 17:05 | NUR ---
WALKED WITH PT UP AND DOWN X2. PT WALKED DECENT.
--- NOTE | 2024-07-30 20:30 | NUR ---
PATIENT RESTING IN BED AT THIS TIME WITH FAMILY AT BEDSIDE. DAUGHTER AND SON ARE BOTH HERE. SITTER ALSO AT BEDSIDE. PATIENT WITH TELE MONITOR IN PLACE WITH LAST REAING SR-'S. PATIENT HAS BEEN UP MTO THE BR WITH MNIN ASSIST AND VOIDING WITHOUT ANY DIFFICULTY. PATIENT IS PLEASANT AND ORIENTED TO PERSON AND PLACE AT THIS TIME. IV SITE TO RAC INTACT AND HEALTHY WHEN FLUSHED. MEDICATED FOR HEADACE AND GENERALIZED PAIN WITH LORTAB ORDERED FOR 8/10 PAIN SCALE. PATIENT STATES THAT SHE DID HAVE BM TODAY. LUNGS ARE CLEAR. ABD IS SOIFT WITH ACTIVE BS. CALL LIGHT IN REACH. WILL CONT TO MONITOR.
--- NOTE | 2024-07-31 | NUR ---
RESTING QUIETLY IN BED WITH EYES CLOSED. RESPS ARE EVEN AND UNLABORED. SITTER REMAINS AT BEDSIDE FOR PATIENT SAFETY. TELE MONTIOR IN PLACE. SALINE LOCK TO RAC INTACT. BED ALARM IN PLACE FOR PATIENT SAFETY. CALL LIGHT IN REACH. WILL CONT TO MONITOR.
[2024-07-31 00:05] VITALS: BP 109/54
--- NOTE | 2024-07-31 04:30 | NUR ---
PATIENT RESTING IN BED WITH EYES CLOSED. RESPS ARE EVEN AND UNLABORED. SITTER AT BEDSIDE FOR PATIENT SAFETY. TELE MONITOR IN PLACE. SALINE LOCK TO RAC INTACT. BED ALARM IN PLACE FOR PATIENT SAFETY. CALL LIGHT IN REACH. WILL CONT TO MONITOR.
[2024-07-31 05:11] VITALS: BP 156/60
[2024-07-31 06:16] VITALS: BP 145/64
--- NOTE | 2024-07-31 07:30 | NUR ---
Report received from assistant shift supervisor nurse. Per nurse, no events overnight. Patient is sitting in recliner chair eating breakfast, denies any pain. A&O to self/place, on room air, VS WNL, NSR on tele monitor, sitter at bedside. All needs addressed, call light within reach.
[2024-07-31 10:25] VITALS: BP 140/58
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
[2024-07-31 15:51] VITALS: BP 164/69
--- NOTE | 2024-07-31 16:00 | NUR ---
Patient is resting in bed, denies any pain. A&O to self and place. On room air, VS WNL, ST on tele monitor, sitter at bedside. All needs addressed, call light within reach.
[2024-07-31 19:39] VITALS: BP 147/61
--- NOTE | 2024-07-31 20:00 | NUR ---
PATIENT SITTING UP ON THE COUCH WITH HER SON WHO IS VISITING FROM OUT OF STATE. PATIENT IS AWAKE ALERT AND PLEASANT WITH ONLY COMPLAINT OF GENERALIZED DISCOMFORT. TOO EARLY FOR LORTAB SO MEDICATED WITH TYLENOL FOR PAIN. OTHER HS MEDS WERE GIVEN. PATIENT IS STEADY ON HER FEET AND AMBULATES TO THE BR TO VOID WITHOUT ANY DIFFICULTY. LUNGS ARE CLEAR, ABD SOFT WITH ACTIVE BS. NO PERIPHERAL EDEMA NOTED. CALL LIGHT IN REACH. PATIENT WITH SITTER AT BEDSIDE FOR PATIENT SAFETY. CALL LIGHT IN REACH. WILL CONT TO MONITOR
[2024-08-01] VITALS (8 sets, daily range): BP systolic 117–156; BP diastolic 54–72
--- NOTE | 2024-08-01 | NUR ---
PATIENT RESTING IN BED AT THIS TIME WITH EYES CLOSED AND RESPS ARE EVEN AND UNLABORED. SITTER AT BEDSIDE FOR PATIENT SAFETY. TELE MONITOR IN PLACE. SALINE LOCK RAC INTACT. BED ALARM IN PLACE FOR PATIENT SAFETY. CALL LIGHT IN REACH. WILL CONT TO MONITOR.
--- NOTE | 2024-08-01 04:00 | NUR ---
PATIENT RESTING IN BED-HR IS ELEVATED AND PATIENT MEDICATED FOR GENERALIZED PAIN WITH LORTAB 10/325MG PO ORDERED. PATIENT UP TO THE BR TO VOID AND THEN BACK TO BED. SALINE LOCK TO RAC INTACT. SITTER AT BEDSIDE. CALL LIGHT IN REACHC. WILL CONT TO MONITOR.
--- NOTE | 2024-08-01 05:00 | NUR ---
EKG WAS DONE AND SHOWS A-FIB RVR-CALL PLACED TO OKSANA TAVAREZ AND NEW ORDER RECEIVED. PATIENT WAS MEDICATED WITH LOPRESSOR 5MG SLOW IVP FOR A-FIB RVR VIA RIGHT AC SITE. MONITORING HR AT BEDSIDE WITH PATIENT MINDRAY. SITTER AT BEDSIDE-WILL CONT TO MONITOR.
[2024-08-01] MEDS ORDERED: METOPROLOL TARTRATE 5 MG/5 ML VIAL IV SCH (05:10)
[2024-08-01] MEDS ORDERED: DILTIAZEM HCL 25 MG/5 ML SDV IV SCH (06:15)
--- NOTE | 2024-08-01 06:15 | NUR ---
HR IS DOWN BUT STILL UP IN THE 120-130 AT TIMES. NEW ORDER FOR CARDIZEM OBTAINED-BEFORE WAS ABLE TO GIVE MEDICATION PATIENT HR DOWN TO THE 70'S. CARDIZEM NOT GIVEN AT THIS TIME. PATIENT RESTING IN BED WITH SITTER AT BEDSIDE. TELE MONITOR IN PLACE. SALINE LOCK TO RAC INTACT. CALL LIGHT IN REACH. WILL CONT TO MONITOR.
--- NOTE | 2024-08-01 06:44 | NUR ---
PATIENT RESTING IN BED WITH SITTER AT BEDSIDE FOR PATENT SAFETY. EYES ARE CLOSED AND RESPS ARE EVEN AND UNLABORED. TELE NOW READING SR-60. CALL LIGHT IN REACH. WILL CONT TO MONITOR.
--- NOTE | 2024-08-01 07:30 | NUR ---
Report received from coverage analyst nurse. Nurse reports that patient went into AFIB overnight and metoprolol was given to decrease rate. HR is currently AFIB on tele monitor with a controlled rate. Patient is sitting in recliner chair, denies any pain, A&O to self/place/time, unsure of situation., VS WNL, sitter at bedside. All needs addressed, call light within reach.
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
--- NOTE | 2024-08-01 16:00 | NUR ---
Patient is resting in bed, denies any pain. Patient is A&O to self/ place, on room air, AFIB on tele monitor, VS WNL, sitter at bedside. All needs addressed, call light within reach.
--- NOTE | 2024-08-01 20:20 | NUR ---
awake. sitting in bedside chair. denies distress. cleaner signs shows sinus rhythm. saline lock in place. voids per bathroom. sitter @ bedside. son @ bedside. fall precautions cont.
[2024-08-02] VITALS (10 sets, daily range): BP systolic 131–168; BP diastolic 54–74
--- NOTE | 2024-08-02 00:05 | NUR ---
telemetry shows sinus rhythm hr 72
--- NOTE | 2024-08-02 04:00 | NUR ---
telemetry shows sinus rhythn hr 52
--- NOTE | 2024-08-02 10:30 | NUR ---
PRODUCE PRODUCTION TEAM MEMBER REMOVED PT IS IN ROOM WATCHING TV PT HAS CALL LIGHT IN REACH PT HAS NO COMPLAINTS AT THIS TIME. PT IS ALERT KNOWS SHE IS IN THE HOSPITAL. PT IS AMBULATORY
--- NOTE | 2024-08-02 18:52 | NUR ---
PT HAS BEEN GOOD WITHOUT SITTER ALL DAY PT IS IN ROOM WATCHING TV HAS NO COMPLAINTS ATE DINNER AND HAS HER CALL LIGHT AND BELONGING IN REACH.
--- NOTE | 2024-08-02 20:05 | NUR ---
PATIENT IN BED RESTING IN BED WITH EYES CLOSED. BED SIDE ASSESSMENT COMPLETE. PATIENT IS A&O X3. PATIENT CAN MAKE NEEDS KNOWN NONE NEEDED AT THIS TIME. EQUAL UNLABORED BREATHING. BOWEL SOUNDS PRESENT. PERIPHERAL PULSES STRONG AND EQUAL. BED AT LOWEST POSITION. CALL LIGHT WITH IN REACH.
--- NOTE | 2024-08-02 21:17 | NUR ---
PT C/O CP. PT TALKING WITH STAFF, NO DISTRESS VIZUALIZED. PT STATES PAIN STARTS IN CHEST INTO HER BACK AND DOWN HER RIGHT ARM. VS COMPLETED. TELE MONITORING IN PLACE, NSR. PT STATES SHE HAS HAD THIS PAIN FOR A WHILE AND IT USUALLY GOES AWAY BY ITSELF OR PAIN MEDS. PRN MEDS ADMINISTERED. EKG ORDER PLACED.
--- NOTE | 2024-08-02 21:28 | NUR ---
EKG COMPLETED, NSR. PT STATES PAIN HAS NOT DECREASED VERY MUCH. Salas GOODMAN INFORMED OF PT STATUS. ORDERS TO ADMINISTER NIGHT TIME MEDS AND IF PAIN IS NOT RESOLVED BY 2300 THEN CALL BACK.TELE MONITORING REMAINS IN PLACE.
--- NOTE | 2024-08-03 00:10 | NUR ---
PATIENT IN ROOM RESTING IN BED WITH EYES CLOSED. EQUAL UNLABORED RESPIRATIONS. NO VISUAL SIGNS OF DISTRESS. BED AT LOWEST POSITION. CALLLIGHT WITH IN REACH.
--- NOTE | 2024-08-03 04:24 | NUR ---
PATIENT IN ROOM RESTING IN BED WITH EYES CLOSED. RESPERATIONS EQUAL AND UNLABORED. BED AT LOWEST POSITION. CALL LIGHT WITH IN REACH.
[2024-08-03 04:41] VITALS: BP 155/77
[2024-08-03 06:27] LABS: BASO% 0.8 % (0-3); HEMATOCRIT 39.2 % (37.0-47.0); HEMOGLOBIN 12.8 g/dl (12.0-16.0); IMMATURE GRANULOCYTES 0.2 % (0.0-5.0); LYMPH% 37.1 % (15-41); MEAN CELL VOLUME 96.6 fL CALC (80.0-100.0); MEAN CORPUSCULAR HGB 31.5 pG CALC (26.0-32.0); MEAN CORPUSCULAR HGB CONC 32.7 g/dL CAL (32.0-36.0); MONO% 11.2 % (2-13); NEUT# 3.01 thou/uL (2.00-7.15); NEUT% 45.7 % (42-76); RED BLOOD COUNT 4.06 mill/uL (4.20-5.60); RED CELL DISTRI WIDTH 11.8 % (11.5-15.5)
[2024-08-03 06:44] LABS: ALBUMIN 3.8 g/dL (3.2-5.0); BILIRUBIN, TOTAL 0.9 mg/dL (0.02-1.3); CREATININE 0.8 mg/dL (0.5-1.0); MAGNESIUM 2.2 mg/dL (1.6-2.3); POTASSIUM 3.5 mmol/l (3.5-5.1); TOTAL PROTEIN 6.5 g/dL (6.3-8.2)
[2024-08-03 07:22] VITALS: BP 166/83
[2024-08-03 07:32] VITALS: BP 166/83
[2024-08-03 16:04] VITALS: BP 149/86
[2024-08-03 16:38] VITALS: BP 149/86
[2024-08-03 19:28] VITALS: BP 163/70
--- NOTE | 2024-08-03 19:40 | NUR ---
PATIENT OBSERVED RESTING IN BED. ALERT AND ABLE TO MAKE NEEDS KNOWN. ASSESSMENT COMPLETE. NO DISTRESS NOTED. NO COMPLAINTS OF PAIN. DENIES NEEDING ANYTHING AT THIS TIME. BED REMAINS IN LOW POSITION. CALL JACOBSEN AND BELONGINGS IN REACH.
[2024-08-04] VITALS (8 sets, daily range): BP systolic 132–171; BP diastolic 62–73
--- NOTE | 2024-08-04 00:55 | NUR ---
PATIENT OBSERVED RESTING IN BED ON HER RIGHT SIDE. NO DISTRESS NOTED. NO SIGNS OF PAIN. AMBULATES TO BATHROOM WITH STEADY GATE NEEDED. DENIES NEEDING ANYTHING AT THIS TIME. BED REMAINS IN LOW POSITION. CALL JACOBSEN IN REACH.
--- NOTE | 2024-08-04 04:50 | NUR ---
PATIENT REMAINS RESTING IN BED ON HER RIGHT SIDE. NO DISTRESS NOTED. NO COMPLAINTS OF PAIN. BED REMAINS IN LOW POSITION. CALL JACOBSEN IN REACH.
--- NOTE | 2024-08-04 07:46 | NUR ---
PATIENT UP USING RESTROOM INDEPENDENTLY. PATIENT A&O. BREATHING UNLABORED ON ROOM AIR. TELE INTACT. PATIENT DENIES ANY N/D/V AT THIS TIME. PT STATES TO HAVE SOME PAIN BUT NOT ENOUGH TO WANT PAIN MEDS. MEDICATION REVIEWED. BREAKFAST AT BEDSIDE; ENCOURAGED PT TO EAT. BED IN LOWEST POSITION. CALL LIGHT WELL PERSONAL ITEMS WITHIN REACH. NO NEEDS AT THIS TIME.
--- NOTE | 2024-08-04 12:35 | NUR ---
PATIENT OUT OF THE SHOWER AND NOW SITTING UP IN HER RECLINER. BREATHING UNLABORED ON ROOM AIR. TELE INTACT. FAMILY MEMBERS AT BEDSIDE. PT DENIES ANY PAIN OR N/D/V AT THIS TIME. PERSONAL ITEMS WELL CALL LIGHT WIHTIN REACH; PT VERBALIZED UNDERSTANDING OF USE. BED IN LOWEST POSITION. NO NEEDS AT THIS TIME.
--- NOTE | 2024-08-04 16:06 | NUR ---
PATIENT UP SITING IN RECLINER. BREATHING UNLABORED ON ROOM AIR. TELE INTACT. PT DENIES ANY PAIN OR N/D/V AT THIS TIME. IV IN LAC SL;SITE CLEAN AND INTACT. PERSONAL ITEMS WITHIN REACH WELL CALL LIGHT. BED IN LOWEST POSITION. POC ONGOING.
--- NOTE | 2024-08-04 20:30 | NUR ---
PATIENT UP AND ABOUT IN THE ROOM AFTER VISIT WITH HER FAMILY AND . PATIENT IN GOOD SPIRITS AND SEEMS TO BE PLEASED WITH THE VISIT. PATIENT WITH STEADY GAIT. TELE MONITOR IN PLACE. IV SITE TO THE LAC INTACT. LUNGS ARE CLEAR. ABD IS SOFT WITH ACTIVE BS. UP TO THE BR TO VOID WITHOUT ANY DIFFICULTY. MEDICATED FOR HEADACHE WITH LORTAB FOR 6/10 ON PAIN SCALE. BENEDRYL GIVEN FOR SLEEP. SAFETY PRECAUTIONS REINFORCED. CALL LIGHT IN REACH, WILL CONT TO MONITOR.
--- NOTE | 2024-08-04 22:07 | NUR ---
PATIENT C/O CHEST PAIN AND PALPATATIONS. VS TAKEN AND RECORDED. TELE MONITOR READING SR-70'S. CALLED FOR EKG AND WAS DONE AT BEDSIDE-READING NSR-73. ASSISTED OOB TO THE BR AND THEN BACK TO THE BED. SAFETY PRECAUTIONS REINFORCED. CALL LIGHT IN REACH. WILL CONT TO MONITOR.
--- NOTE | 2024-08-04 22:46 | NUR ---
PATIENT CONT TO C/O CHEST PAIN. CALL PLACED TO OKSANA TAVAREZ APRN WITH NEW ORDERS RECEIVED. STAT TROP WILL BE DRAWN AND LAB WAS CALLED. WILL MEDICATE WITH MORPHINE 2MG IVP SOON PROFILED ON EMAR. WILL CONT TO MONITOR.
[2024-08-04] MEDS ORDERED: MORPHINE SULFATE 4 MG/ML VIAL IV SCH (22:50)
--- NOTE | 2024-08-04 23:31 | NUR ---
PATIENT RESTING IN BED-STATES THAT SHE IS FEELING BETTER. MIN ASSIST OOB TO THE BR TO VOID AND THEN ASSISTED BACK TO BED. SAFETY PRECAUTIONS REINFORCED. CALL LIGHT IN REACH. WILL CONT TO MONITOR.
[2024-08-05] VITALS (7 sets, daily range): BP systolic 125–184; BP diastolic 53–89
--- NOTE | 2024-08-05 02:33 | NUR ---
RESTING QUIETLY IN BED WITH EYES CLOSED. RESPS ARE EVEN AND UNLABORED. TELE MONITOR READING SR-68. CALL LIGHT IN REACH. WILL CONT TO MONITOR.
--- NOTE | 2024-08-05 07:23 | NUR ---
PATIENT LYING SUPINE IN BED WATCHING TV. PATIENT A&O. BREATHING UNLABORED ON ROOM AIR. TELE INTACT. ASSESSMENT COMPLETED. PT DENIES ANY PAIN OR N/D/V AT THIS TIME. IV IN LAC SL;SITE CLEAN AND INTACT. PERSONAL ITEMS WITHIN REACH WELL CALL LIGHT;PT VERBALIZED UNDERSTANDING OF USE. BED IN LOWEST POSITION. NO NEEDS AT THIS TIME.
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
--- NOTE | 2024-08-05 16:11 | NUR ---
PATIENT SITTING UP IN BED. BREATHING UNLABORED ON ROOM AIR. TELE INTACT. FAMILY MEMBERS AT BEDSIDE. PT DENIES ANY PAIN OR N/D/V AT THIS TIME. PERSONAL ITEMS WITHIN REACH WELL CALL LIGHT. BED IN LOWEST POSITION. NO NEEDS AT THIS TIME.
--- NOTE | 2024-08-05 20:30 | NUR ---
PATIENT IS AWAKE ALERT AND ORIENTEDX3. PLEASANT WITH NO COMPLAINTS. STILL A LITTLE CONFUSION REGUARDING . SEEMS EXCITED REGUARDING UPCOMING TRANSFER TO "NEW [facility]T" AT THE [place]. PATIENT IS INDEPENDANT WITH ADL'S-STEADY ON HER FEET. UP TO THE BR TO VOIDING WITHOUT ANY DIFFICULTY. DID HAVE BM TODAY. LUNGS ARE CLEAR. ABD SOFT WITH ACTIVE BS. STILL HAVEIN HEADACHE AND GENRALIZED PAIN-9/10 PER PATIENT. MEDICATED WITH LORTAB PO FOR PAIN. NO PERIPHERAL EDEMA NOTED. PULSES ARE PALPABLE. SAFETY PRECAUTIONS REINFORCED. CALL LIGHT IN REACH. WILL CONT TO MONITOR.;
--- NOTE | 2024-08-06 | NUR ---
PATIENT RESTING IN BED WITH EYES CLOSED. RESPS ARE EVEN AND UNLABORED. TELE MONITOR IN PLACE READING SR-68, SALINE LOCK TO LEFT AC INTACT. CALL LIGHT IN REACH. WILL CONT TO MONITOR.
--- NOTE | 2024-08-06 04:29 | NUR ---
PATIENT WITH EYES CLOSED AND RESPS ARE EVEN AND UNLABORED, TELE MONITOR IN PLACE. CALL LIGHT IN REACH. WILL CONT TO MONITOR.
[2024-08-06 04:41] VITALS: BP 148/66
--- NOTE | 2024-08-06 07:00 | NUR ---
RECEIVED BEDSIDE REPORT FROM DANA GARNER. PT LYING IN BED WITH EYES CLOSED. ALL SAFETY MEASURES IN PLACE AND FUNCTIONING PROPERLY. VSS. NO NEEDS AT THIS TIME.
[2024-08-06 07:12] VITALS: BP 149/68
[2024-08-06 10:30] VITALS: BP 143/75
[2024-08-06] MEDS ORDERED: DONEPEZIL HYDROC5 MG PO (13:12)
[2024-08-06] MEDS ORDERED: QUETIAPINE FUMA25 MG PO (13:14)
[2024-08-06] MEDS ORDERED: LORTAB 1010 MG PO (13:46)
[2024-08-06 15:38] VITALS: BP 151/72
[2024-08-06 18:55] VITALS: BP 164/68
--- NOTE | 2024-08-06 20:48 | NUR ---
PATIENT SITTING UP IN THE RECLINER AT TH IS TIME-AWAKE ALERT AND ORIENTEDX3. PATIENT EXCITED ABOUT UPCOMING TRANSFER TO THE [facility]. FAMILY IS GETTING HER "NEW APT READY". REMAINS ON TELE READY SR-78. SALINE LOCK TO LAC INTACT. PATIENT DENIES ANY DIFFICULTY WITH URINATION, HAD BM TODAY. LUNGS ARE CLEAR. ABD SOFT WITH ACTIVE BS. MEDICATED WITH LORTAB FOR GENERALIZED DISCOMFORT OF 6/10. PATIENT UP AND ABOUT IN THE ROOM WITH STEADY GAIT. SAFETY PRECAUTIONS REINFORCED. CALL LIGHT IN REACH. WILL CONT TO MONITOR.
--- NOTE | 2024-08-06 23:35 | NUR ---
RESTING IN BED POSITIONS ON RIGHT SIDE WITH EYES CLOSED AND RESPS EVEN AND UNLABORED, TELE MONITOR IN PLACE. SALINE LOCK TO LAC INTACT. CALL LIGHT IN REACH. WILL CONT TO MONITOR.
[2024-08-06 23:46] VITALS: BP 158/79
--- NOTE | 2024-08-07 02:05 | NUR ---
RESTING IN BED POSITONED ON LEFT SIDE WITH EYES CLOSED AND RESPS EVEN AND UNLABORED. TELE MONITOR IN PLACE AND READING SR-70. SALINE LOCK TO LAC INTACT. CALL LIGHT IN REACH. WILL CONT TO MONITOR.
--- NOTE | 2024-08-07 05:00 | NUR ---
PATIENT RESTING IN BED AT THIS TIME WITH EYES CLOSED. RESPS ARE EVEN AND UNLABORED. TELE MONITOR IN PLACE READING SR-66. SALINE LOCK TO LAC INTACT. CALL LIGHT IN REACH. WILL CONT TO MONITOR.
[2024-08-07 05:13] VITALS: BP 152/71
--- NOTE | 2024-08-07 07:25 | NUR ---
PT LAYING IN BED RESTING WITH HER EYES CLOSED, AROUSES EASILY TO VERBAL STIMULI, PT IS A&O X 3, PUPILS PERRL, RESP. EVEN AND UNLABORED, LUNG SOUNDS ARE CLEAR IN ALL MORRISON, 22G LAC IV SL, ABD DISTENDED AND SOFT WITH ACTIVE BOWEL SOUNDS, STRONG RADIAL AND PEDAL PULSES, PT REFUSED JONATH[facility] HOSE AGAIN, PT AMBULATES AROUND THE ROOM FREQUENTLY, SAFETY MESAURES REINFORCED, CALL JACOBSEN WITHIN REACH
[2024-08-07 07:36] VITALS: BP 158/88
[2024-08-07 10:50] VITALS: BP 155/74
--- NOTE | 2024-08-07 12:00 | NUR ---
PT SITTING UP IN THE RECLINER WATCHING TV, PT IS DRESSED IN HER OWN CLOTHS AND IS WAITING TO BE PICKED UP BY HER FAMILY, PT DENIES ANY NEEDS AT THIS TIME, CALL JACOBSEN WITHIN REACH
[2024-08-07 16:02] VITALS: BP 160/68
--- NOTE | 2024-08-07 17:08 | NUR ---
Discharge instructions given. Patient verbalizes understanding of same. Discharged in stable condition via [facility]. All belongings sent with pt.
== END 2024-08-07 17:38 ==
LOC: ED 17:53 → ED-I 20:50 → ED 21:13 → MS2 21:14 → ED 22:35 → MS2 07-30 09:55
PROVIDERS: Family Medicine; Nurse Practitioner Family; ADMIT Student in an Organized Health Care Education/Training Program; ATTEND Student in an Organized Health Care Education/Training Program
DX: G30.9 Alzheimer's disease, unspecified (principal); F02.B2 Dementia in other diseases classified elsewhere, moderate, with psychotic disturbance; F05 Delirium due to known physiological condition; N30.00 Acute cystitis without hematuria; B96.20 Unspecified Escherichia coli [E. coli] as the cause of diseases classified elsewhere; R07.9 Chest pain, unspecified; I10 Essential (primary) hypertension; J44.9 Chronic obstructive pulmonary disease, unspecified; E78.5 Hyperlipidemia, unspecified; I34.1 Nonrheumatic mitral (valve) prolapse; Z85.41 Personal history of malignant neoplasm of cervix uteri; Z91.83 Wandering in diseases classified elsewhere
CPT/HCPCS: G0378; J1650